=== PATIENT | male | born 1975 | race African-American/Black ===

== ENCOUNTER 2018-03-24 23:22 | Outpatient (CLI) | payer MEDICAID | END 2018-03-24 23:23 | disposition critical access hospital (66) | LOC: EMS 23:22 | PROVIDERS: ATTEND Surgery | DX: M79.645 Pain in left finger(s) (principal) | CPT/HCPCS: A0425; A0429; A0999 ==

== ENCOUNTER 2018-03-24 23:39 | Emergency (ER) | payer MEDICAID ==
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
--- NOTE | 2018-03-25 00:53 | XRAY Report ---
Procedure Date: 03/25/2018 Accession Number: [id number] / [id number] Procedure: XR - Hand 3 View LT CPT Code: FULL RESULT: EXAM: LEFT HAND RADIOGRAPHY EXAM DATE: 03/25/2018 12:19 AM. CLINICAL HISTORY: Pain after injury to 5th finger left hand. COMPARISON: None. TECHNIQUE: 3 views. FINDINGS: Bones: No acute fracture seen. Joints: No dislocation. Joints are fairly well preserved. Soft Tissues: Mild soft tissue swelling. IMPRESSION: 1. No acute osseous abnormality seen. RADIA
[2018-03-25 02:06] VITALS: BP 162/97
== END 2018-03-25 02:12 | disposition home or self-care (01) ==
LOC: EDUNIT# → ED 23:39
DX: S69.92XA Unspecified injury of left wrist, hand and finger(s), initial encounter (principal); W23.0XXA Caught, crushed, jammed, or pinched between moving objects, initial encounter; Y92.410 Unspecified street and highway as the place of occurrence of the external cause; F17.200 Nicotine dependence, unspecified, uncomplicated
CPT/HCPCS: 99283

== ENCOUNTER 2018-03-26 06:57 | Emergency (ER) | payer MEDICAID ==
[2018-03-26 07:04] VITALS: BP 148/106
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
== END 2018-03-26 08:09 | disposition home or self-care (01) ==
LOC: ED 06:57
DX: S60.222A Contusion of left hand, initial encounter (principal); W19.XXXA Unspecified fall, initial encounter; Y92.410 Unspecified street and highway as the place of occurrence of the external cause; F17.200 Nicotine dependence, unspecified, uncomplicated
CPT/HCPCS: 29125; 99282; 99283

== ENCOUNTER 2019-05-17 17:02 | Emergency (ER) | payer MEDICAID ==
[2019-05-17 17:25] LABS: BASOPHILS % (AUTO) 0.3 %; EOSINOPHILS % (AUTO) 0.1 %; HGB - HEMOGLOBIN 13.9 g/dL (14.0-18.0); LYMPHOCYTES % (AUTO) 7.3 %; MEAN CORPUSCULAR HEMOGLOBIN 29.2 pg (27.0-31.0); MEAN CORPUSCULAR HGB CONC 31.7 g/dL (32.0-36.0); MONOCYTES # (AUTO) 0.3 10^3/uL (0.0-1.0); MONOCYTES % (AUTO) 2.2 %; NEUTROPHILS # (AUTO) 12.9 10^3/uL (1.5-6.6); NEUTROPHILS % (AUTO) 89.5 %; PLT - PLATELET COUNT 192 10^3/uL (130-450); RED BLOOD COUNT 4.76 10^6/uL (4.70-6.10); RED CELL DISTRIBUTION WIDTH 13.5 % (12.0-15.0); WHITE BLOOD COUNT 14.3 x10^3/uL (4.8-10.8)
[2019-05-17 17:37] LABS: ALBUMIN 4.9 g/dL (3.2-5.5); ALBUMIN/GLOBULIN RATIO 1.3 (1.0-2.2); BILIRUBIN,TOTAL 1.5 mg/dL (0.2-1.0); CALCIUM 9.5 mg/dL (8.5-10.3); CREATININE 0.9 mg/dL (0.6-1.2); TOTAL PROTEIN 8.8 g/dL (6.7-8.2)
[2019-05-17] MEDS ORDERED: ONDANSETRON 4 MG/2 ML VIAL IVP STA (18:47)
[2019-05-17] MEDS ORDERED: SODIUM CHLORIDE 0.9% 1,000 ML IV ONE (18:47)
[2019-05-17] MEDS ORDERED: KETOROLAC 30 MG/ML VIAL IVP STA (18:47)
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
[2019-05-17] MEDS ORDERED: IOVERSOL 320 100 ML VIAL IVP ONE ×2 (19:06→19:26)
[2019-05-17 19:38] VITALS: BP 141/86
--- NOTE | 2019-05-17 19:59 | CT Report ---
Reason: IV only, R abd pain Procedure Date: 05/17/2019 Accession Number: [id number] / [id number] Procedure: CT - Abdomen/Pelvis W CPT Code: FULL RESULT: EXAM: CT ABDOMEN AND PELVIS EXAM DATE: 05/17/2019 07:25 PM. CLINICAL HISTORY: IV only, R abd pain. COMPARISONS: None. TECHNIQUE: Routine helical CT imaging was performed through the abdomen and pelvis. IV contrast: OPTI 320 100ML. Enteric contrast: No. Reconstructions: Coronal and sagittal. In accordance with CT protocol optimization, one or more of the following dose reduction techniques were utilized for this exam: automated exposure control, adjustment of mA and/or KV based on patient size, or use of iterative reconstructive technique. FINDINGS: Lung Bases: Unremarkable. Liver: Normal. No masses. Gallbladder/Bile Ducts: Unremarkable. Spleen: Normal. Pancreas: Pancreatic glandular atrophy. Adrenal Glands: Normal. Kidneys: Normal. No masses or hydronephrosis. Peritoneal Cavity/Bowel: Normal. No free fluid, free air or adenopathy. No masses or acute inflammatory process. The appendix is well visualized and normal. Pelvic Organs: Normal. The bladder and visualized pelvic organs are within normal limits. Vasculature: No aneurysms or other significant abnormality. Bones: No significant abnormality. Other: None. IMPRESSION: No acute abdominal pathology. RADIA
[2019-05-17] MEDS ORDERED: ONDANSETRON ODT 4 MG Prepack 2 TL STA (20:04)
[2019-05-17] MEDS ORDERED: LOPERAMIDE 2 MG CAPSULE PO STA (20:04)
== END 2019-05-17 20:11 | disposition home or self-care (01) ==
LOC: ED 17:02
DX: K52.9 Noninfective gastroenteritis and colitis, unspecified (principal); F17.200 Nicotine dependence, unspecified, uncomplicated
CPT/HCPCS: 36415; 74177; 80053; 83690; 85025; 96361; 96374; 99283; A9270; Q9967

== ENCOUNTER 2019-09-11 09:23 | Emergency (ER) | payer MEDICAID ==
[2019-09-11] MEDS ORDERED: SODIUM CHLORIDE 0.9% 1,000 ML IV ONE (09:53)
[2019-09-11] MEDS ORDERED: diltiaZEM INJ 5 MG/ML VIAL IVP STA (09:53)
--- NOTE | 2019-09-11 09:56 | ED Physician Documentation ---
History of Present Illness - Stated complaint Stated Complaint: LIGHT HEADED/SOA - Chief complaint Chief Complaint: Cardiac - History obtained from History obtained from: Patient - History of Present Illness Timing: Today - Additonal information Additional information: This is a 44-year-old man who presents with his significant other complaints that he started to feel little bit lightheaded and woozy when he got up to go to the bathroom around midnight last night. He did not pass out. He feels kind of off balance and a spinning sensation. He says he has had this happen previously every "once in a while which she said is maybe twice in a 6-month. But his he is never gone in and been evaluated for it and it always just resolves. He felt like his heart was beating very irregular but he did not check his pulse. He did not have chest pain. He has had some shortness of breath and some minor cough. He felt a little nauseous but no vomiting. He has not recently been ill. Denies any history of thyroid disorder or diabetes. He is not on any prescription medications. 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 Denies history of heart disease and no family history of A. fib or heart disease that he is aware of. He reports about weekly use of alcohol. He does smoke marijuana. Denies other drugs. Review of Systems Constitutional: denies: Fever Eyes: denies: Decreased vision Ears: denies: Ear pain Nose: denies: Rhinorrhea / runny nose, Congestion Throat: denies: Sore throat Cardiac: reports: Palpitations. denies: Chest pain / pressure, Pedal edema Respiratory: reports: Dyspnea, Cough GI: reports: Nausea. denies: Vomiting : denies: Dysuria Skin: denies: Rash Neurologic: denies: Numbness, Syncope Endocrine: reports: Other (No history of thyroid disorder or diabetes.) PD PAST MEDICAL HISTORY - Past Medical History Cardiovascular: None Respiratory: None - Past Surgical History Past Surgical History: No - Present Medications Home Medications: Ambulatory Orders Medication Instructions Recorded Confirmed Loperamide [Imodium] 2 mg PO QID PRN #10 capsule 05/17/19 Ondansetron Odt [Zofran] 4 mg TL Q6H PRN #10 tablet 05/17/19 Doxycycline Monohydrate 100 mg PO BID #14 tablet 06/14/19 Mupirocin 1 applic TP TID #15 g 06/14/19 Diltiazem HCl [Cardizem LA] 60 mg PO DAILY #30 tab.er.24h 09/11/19 - Allergies Allergies/Adverse Reactions: Allergies Allergy/AdvReac Type Severity Reaction Status Date / Time No Known Drug Allergies Allergy Verified 06/14/19 17:57 - Social History Does the pt smoke?: Yes Smoking Status: Current every day smoker Does the pt drink ETOH?: Yes Does the pt have substance abuse?: No - Immunizations Immunizations are current?: Yes - POLST Patient has POLST: No PD ED PE NORMAL - Vitals Vital signs reviewed: Yes - General General: Alert and oriented X 3, No acute distress, Well developed/nourished, Other (Thin 44-year-old man who is in no distress.) - HEENT HEENT: Atraumatic, PERRL, EOMI, Moist mucous membranes, Pharynx benign - Neck Neck: Supple, no meningeal sign, No adenopathy - Cardiac Cardiac: No murmur, Strong equal pulses, Other (Irregular rhythm, rate in the low 100s.) - Respiratory Respiratory: No respiratory distress, Clear bilaterally - Abdomen Abdomen: Normal bowel sounds, Soft, No organomegaly - Derm Derm: Normal color, Warm and dry, No rash - Extremities Extremities: No edema - Neuro Neuro: Alert and oriented X 3, supervisor yard 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, No motor deficit, No sensory deficit, Normal speech - Psych Psych: Normal mood, Normal affect Results - Vitals Vitals: Vital Signs - 24 hr 09/11/19 09/11/19 09/11/19 09:29 09:53 10:05 Temperature 36.1 C L Heart Rate 102 H 98 95 Respiratory 18 18 18 Rate Blood Pressure 108/77 116/84 H 113/82 H O2 Saturation 99 98 96 09/11/19 09/11/19 09/11/19 10:10 10:30 10:38 Temperature Heart Rate 75 86 79 Respiratory 18 18 12 Rate Blood Pressure 106/85 H 121/83 H 118/81 H O2 Saturation 99 100 100 09/11/19 09/11/19 09/11/19 10:45 11:00 12:21 Temperature Heart Rate 83 102 H 99 Respiratory 18 18 22 Rate Blood Pressure 115/72 115/76 121/86 H O2 Saturation 97 99 99 09/11/19 09/11/19 09/11/19 12:58 13:06 13:13 Temperature Heart Rate 93 71 67 Respiratory 16 18 18 Rate Blood Pressure 158/104 H 122/77 116/81 H O2 Saturation 100 100 100 Oxygen O2 Source Room air - EKG (time done) 0937 Rate: Rate (enter#) (106), Tachy Rhythm: Atrial fibrillation Intervals: No: Wide QRS Ischemia: Non specific changes Compare to prior EKG: Old EKG unavailable 1309 Rate: Rate (enter#) (64) Rhythm: NSR Intervals: Normal [place]. No: Wide QRS Ischemia: Non specific changes Compare to prior EKG: Changed from prior EKG (has converted from afib to NSR) - Labs Labs: Laboratory Tests 09/11/19 09/11/19 09/11/19 09:45 09:45 09:45 WBC 6.1 RBC 4.53 L Hgb 13.6 L Hct 41.9 L MCV 92.5 MCH 30.0 MCHC 32.5 RDW 13.2 Plt Count 181 MPV 12.1 H Neut # (Auto) 4.0 Lymph # (Auto) 1.5 [place] # (Auto) 0.5 Eos # (Auto) 0.1 Baso # (Auto) 0.0 Absolute Nucleated RBC 0.00 Nucleated RBC % 0.0 Sodium 141 Potassium 4.1 Chloride 104 Carbon Dioxide 28 Anion Gap 9.0 BUN 13 Creatinine 0.9 Estimated GFR (MDRD) 111 Glucose 161 H Calcium 8.9 Magnesium 2.2 Total Bilirubin 0.7 AST 25 ALT 23 Alkaline Phosphatase 58 Troponin I High Sens 7.5 Total Protein 7.9 Albumin 4.4 Globulin 3.5 Albumin/Globulin Ratio 1.3 Lipase 22 TSH Urine Color Urine Clarity Urine pH Ur Specific [place] Urine Protein Urine Glucose (UA) Urine Ketones Urine Occult Blood Urine Nitrite Urine Bilirubin Urine Urobilinogen Ur Leukocyte Esterase Ur Microscopic Review Urine Culture Comments Urine Opiates Screen Ur Oxycodone Screen Urine Methadone Screen Ur Propoxyphene Screen Ur Barbiturates Screen Ur Tricyclics Screen Ur Phencyclidine Scrn Ur Amphetamine Screen U Methamphetamines Scrn U Benzodiazepines Scrn Urine Cocaine Screen U Cannabinoids Screen 09/11/19 09/11/19 09:45 10:40 WBC RBC Hgb Hct MCV MCH MCHC RDW Plt Count MPV Neut # (Auto) Lymph # (Auto) [place] # (Auto) Eos # (Auto) Baso # (Auto) Absolute Nucleated RBC Nucleated RBC % Sodium Potassium Chloride Carbon Dioxide Anion Gap BUN Creatinine Estimated GFR (MDRD) Glucose Calcium Magnesium Total Bilirubin AST ALT Alkaline Phosphatase Troponin I High Sens Total Protein Albumin Globulin Albumin/Globulin Ratio Lipase TSH 0.69 Urine Color YELLOW Urine Clarity CLEAR Urine pH 6.5 Ur Specific [place] 1.015 Urine Protein NEGATIVE Urine Glucose (UA) NEGATIVE Urine Ketones NEGATIVE Urine Occult Blood NEGATIVE Urine Nitrite NEGATIVE Urine Bilirubin NEGATIVE Urine Urobilinogen 0.2 (NORMAL) Ur Leukocyte Esterase NEGATIVE Ur Microscopic Review NOT INDICATED Urine Culture Comments NOT INDICATED Urine Opiates Screen NEGATIVE Ur Oxycodone Screen NEGATIVE Urine Methadone Screen NEGATIVE Ur Propoxyphene Screen NEGATIVE Ur Barbiturates Screen NEGATIVE Ur Tricyclics Screen NEGATIVE Ur Phencyclidine Scrn NEGATIVE Ur Amphetamine Screen NEGATIVE U Methamphetamines Scrn NEGATIVE U Benzodiazepines Scrn NEGATIVE Urine Cocaine Screen NEGATIVE U Cannabinoids Screen POSITIVE H - Rads (name of study) CXR Radiology: EMP read contemporaneously Procedures - Procedural sedation Sedation prep: Informed consent, Last meal (6 hours), AHA 1 - healthy, IV O2 monitor, ET CO2 monitor Sedation medications: propofol (total 90mg) Patient status during sedation: Unresponsive, Vitals remained stable, Maintained airway, Recovered uneventfully. No: Hypoxia, Needed resp assistance Sedation recovery: Back to baseline Time in sedation (Minutes): 10 (see nursing notes) - Cardioversion Attempt 1 Indication: Tachyarrhythmia Risks, benefits, alternatives explained to: Pt Prep: IV, O2, night monitor, Pulse ox, Airway equip Meds: Propofol CS via: Pads Sync: Biphasic (120) Post cardioversion rhythm: NSR Performed by: ED MD HAWKINS MEDICAL DECISION MAKING - ED course Complexity details: reviewed results, re-evaluated patient, d/w patient, d/w family ED course: 1230: Labs are normal. The patient was given 10 mg of Cardizem IV and loaded with a gram of procainamide and did not convert. He remained in A. fib with rates in the upper 90s sometimes up into the 120s whenever he was up and went to the bathroom. We discussed electrical cardioversion and he is agreeable with that plan. We discussed the risk and benefits of conscious sedation. His is familiar with this because she had a brother who underwent electrical cardioversion for A. fib. He is consented to the procedure. He is given half a milligram of Dilaudid and 4 of Zofran and plan for conscious sedation with propofol followed by cardioversion. 1315: There was successful electrocardioversion to return of sinus rhythm rate of 64. I did discuss with Dr. Ulloa who is on for [facility] cardiology. He recommended that we start the patient at least temporarily on Cardizem ER 60 mg daily. No current need for anticoagulation. They are happy to follow him up in the office. Recommended outpatient echo and I will refer the patient back to his primary care provider for that or they can do it through the cardiology office if he can get into them sooner. He is asked to return for any complications or concerns. Departure - Departure Disposition: 01 Home, Self Care Clinical Impression: Atrial fibrillation Qualifiers: Atrial fibrillation type: unspecified Qualified Code(s): I48.91 - Unspecified atrial fibrillation Condition: Good Instructions: ED Paroxysmal Atrial Flutter Follow-Up: CATARINO HERNANDEZ PA [Primary Care Provider] - JEERMÍAS ULLOA MD [Physician No Access] - [facility] - Card [Provider Group] Prescriptions: Diltiazem HCl [Cardizem LA] 60 mg PO DAILY #30 tab.er.24h Comments: The food and drug inspector is recommended that you take a rate controlling medication Cardizem at 60 mg daily until they can follow you up as an outpatient. They also recommended echocardiogram which she should contact your primary care provider about ordering. You should contact the food and drug inspector office [facility] cardiology clinics this coming week to arrange for a follow-up appointment. Return to the emergency department if you have recurrent symptoms or other problems arise.
[2019-09-11 10:02] LABS: BASOPHILS % (AUTO) 0.5 %; EOSINOPHILS # (AUTO) 0.1 10^3/uL (0.0-0.7); EOSINOPHILS % (AUTO) 1.5 %; HGB - HEMOGLOBIN 13.6 g/dL (14.0-18.0); LYMPHOCYTES # (AUTO) 1.5 10^3/uL (1.5-3.5); LYMPHOCYTES % (AUTO) 24.4 %; MEAN CORPUSCULAR HGB CONC 32.5 g/dL (32.0-36.0); MEAN CORPUSCULAR VOLUME 92.5 fL (80.0-94.0); MEAN PLATELET VOLUME 12.1 fL (7.4-11.4); MONOCYTES # (AUTO) 0.5 10^3/uL (0.0-1.0); MONOCYTES % (AUTO) 8.1 %; NEUTROPHILS % (AUTO) 65.2 %; PLT - PLATELET COUNT 181 10^3/uL (130-450); RED BLOOD COUNT 4.53 10^6/uL (4.70-6.10); RED CELL DISTRIBUTION WIDTH 13.2 % (12.0-15.0); WHITE BLOOD COUNT 6.1 x10^3/uL (4.8-10.8)
[2019-09-11 10:12] LABS: ALBUMIN 4.4 g/dL (3.2-5.5); ALBUMIN/GLOBULIN RATIO 1.3 (1.0-2.2); BILIRUBIN,TOTAL 0.7 mg/dL (0.2-1.0); CALCIUM 8.9 mg/dL (8.5-10.3); CREATININE 0.9 mg/dL (0.6-1.2); MAGNESIUM 2.2 mg/dL (1.7-2.8); TOTAL PROTEIN 7.9 g/dL (6.7-8.2)
[2019-09-11] MEDS ORDERED: PROCAINAMIDE 1,000 MG/10 ML SYRINGE IV STA (10:21)
[2019-09-11 10:42] LABS: MUDS CUTOFF CONCENTRATIONS CUTOFF CONC BELOW:
[2019-09-11 10:47] LABS: BILIRUBIN,URINE NEGATIVE (NEGATIVE); GLUCOSE, URINE (UA) NEGATIVE (NEGATIVE); KETONES,URINE (UA) NEGATIVE (NEGATIVE); LEUKOCYTE ESTERASE, URINE NEGATIVE (NEGATIVE); NITRITE,URINE NEGATIVE (NEGATIVE); OCCULT BLOOD,URINE NEGATIVE (NEGATIVE); PH,URINE 6.5 PH (5.0-7.5); PROTEIN,URINE NEGATIVE (NEGATIVE); UROBILINOGEN,URINE 0.2 (NORMAL) E.U./dL (NORMAL)
--- NOTE | 2019-09-11 10:50 | XRAY Report ---
Reason: chest pain Procedure Date: 09/11/2019 Accession Number: [id number] / [id number] Procedure: XR - Chest 1 View X-Ray CPT Code: 61248 Final Report FULL RESULT: EXAM: CHEST RADIOGRAPHY EXAM DATE: 09/11/2019 10:10 AM. CLINICAL HISTORY: Chest pain, lightheadedness. COMPARISON: None. TECHNIQUE: 1 view. FINDINGS: Lungs/Pleura: No focal opacities evident. No pleural effusion. No pneumothorax. Mediastinum: Within exam limitations, the cardiomediastinal contour is normal. Other: None. IMPRESSION: Normal single view chest. RADIA
[2019-09-11 10:51] LABS: CLARITY,URINE CLEAR (CLEAR)
[2019-09-11 11:10] LABS: AMPHETAMINE SCREEN,URINE NEGATIVE (NEGATIVE); BENZODIAZEPINES SCREEN, URINE NEGATIVE (NEGATIVE); COCAINE SCREEN URINE NEGATIVE (NEGATIVE); METHADONE SCREEN, URINE NEGATIVE (NEGATIVE); METHAMPHETAMINES SCREEN, URINE NEGATIVE (NEGATIVE); OPIATE SCREEN, URINE NEGATIVE (NEGATIVE); OXYCODONE SCREEN, URINE NEGATIVE (NEGATIVE); PROPOXYPHENE SCREEN, URINE NEGATIVE (NEGATIVE); TRICYCLIC ANTIDEPRESSANT,URINE NEGATIVE (NEGATIVE)
[2019-09-11] MEDS ORDERED: HYDROmorphone 1 MG/ML CARPUJECT IVP STA (12:39)
[2019-09-11] MEDS ORDERED: PROPOFOL 200 MG/20 ML VIAL IVP STA (12:39)
[2019-09-11] MEDS ORDERED: ONDANSETRON 4 MG/2 ML VIAL IVP STA (12:39)
[2019-09-11 13:37] VITALS: BP 109/78
== END 2019-09-11 13:37 | disposition home or self-care (01) ==
LOC: ED 09:23
DX: I48.91 Unspecified atrial fibrillation (principal); F17.200 Nicotine dependence, unspecified, uncomplicated
CPT/HCPCS: 36415; 71045; 80053; 80306; 81003; 83690; 83735; 84443; 84484; 85025; 92960; 96361; 96374; 96375; 99152; 99285; J1170; J2690; 81001; 87086; 93005

== ENCOUNTER 2019-09-26 15:57 | Emergency (ER) | payer OTHER, MEDICAID ==
[2019-09-26 16:14] VITALS: BP 126/84
--- NOTE | 2019-09-26 16:36 | XRAY Report ---
Reason: Trauma,bruising and pain Procedure Date: 09/26/2019 Accession Number: [id number] / [id number] Procedure: XR - Foot 3 View RT CPT Code: Final Report FULL RESULT: EXAM: RIGHT FOOT RADIOGRAPHY EXAM DATE: 09/26/2019 04:18 PM. CLINICAL HISTORY: Trauma, bruising and pain. COMPARISON: None. TECHNIQUE: 3 views. FINDINGS: Bones: No acute fracture. No suspicious osseous lesion. Joints: No significant joint space narrowing. No dislocation. Large calcification at the dorsal aspect of the talonavicular joint may represent interarticular body or heterotopic ossification. Other: None. IMPRESSION: No acute osseous abnormality. RADIA
--- NOTE | 2019-09-26 18:51 | ED Physician Documentation ---
History of Present Illness - Stated complaint Stated Complaint: RIGHT FT PX - Chief complaint Chief Complaint: Trauma Ext - History obtained from History obtained from: Patient - History of Present Illness Pain level now: 4 Improved by: rest Worsened by: ambulation - Additonal information Additional information: 44 YEAR OLD MALE PRESENTS TO THE EMERGENCY DEPARTMENT BECAUSE OF RIGHT FOOT PAIN. HE REPORTED THAT HE SUFFERED AN INJURY WHILE AT WORK LAST THURSDAY (5 DAYS AGO) WHEN A BOX ABOUT 60 LBS WAS DROPPED ON TOP OF HIS RIGHT FOOT. HE WORKS AT [employer]. PATIENT REPORTED THAT HE HAD SWELLING TO THE TOP OF THE FOOT AND THE SWELLING HAS SINCE GONE AWAY. HE REPORTED OF NUMBNESS TO THE TOP OF HIS FOOT. HE DENIES PREVIOUS INJURY TO HIS RIGHT FOOT. HE HAS BEEN WORKING DESPITE HIS INJURY. HE DENIES FEVER OR CHILLS. Review of Systems Constitutional: denies: Fever, Chills Eyes: denies: Discharge, Irritation Ears: denies: Ear pain Nose: denies: Rhinorrhea / runny nose Cardiac: denies: Chest pain / pressure Respiratory: denies: Dyspnea, Cough GI: denies: Abdominal Pain Skin: denies: Rash, Lesions Musculoskeletal: reports: Other (RIGHT FOOT PAIN) PD PAST MEDICAL HISTORY - Past Medical History Past Medical History: Yes Cardiovascular: Atrial fibrillation Respiratory: None - Past Surgical History Past Surgical History: Yes - Present Medications Home Medications: Ambulatory Orders Medication Instructions Recorded Confirmed Diltiazem HCl [Cardizem LA] 60 mg PO DAILY #30 tab.er.24h 09/11/19 - Allergies Allergies/Adverse Reactions: Allergies Allergy/AdvReac Type Severity Reaction Status Date / Time No Known Drug Allergies Allergy Verified 09/26/19 18:25 - Social History Does the pt smoke?: Yes Smoking Status: Current every day smoker Does the pt drink ETOH?: Yes Does the pt have substance abuse?: No - Immunizations Immunizations are current?: Yes - POLST Patient has POLST: No PD ED PE NORMAL - Vitals Vital signs reviewed: Yes - General General: Alert and oriented X 3 - HEENT HEENT: Atraumatic, EOMI - Neck Neck: Supple, no meningeal sign - Cardiac Cardiac: RRR - Respiratory Respiratory: No respiratory distress - Extremities Extremities: No deformity, Other (TENDER TO PALPATION TO TOP OF RIGHT FOOT. NO SWELLING NOTED. NO CREPITUS OR DEFORMITY. RIGHT DP AND PT ARE 2+) - Neuro Neuro: Alert and oriented X 3, epic ambulatory analyst 2-12 intact Eye Opening: Spontaneous Motor: Obeys Commands Verbal: Oriented GCS Score: 15 Results - Vitals Vitals: Vital Signs - 24 hr 09/26/19 16:07 Temperature 37 C Heart Rate 67 Respiratory 18 Rate Blood Pressure 126/84 H O2 Saturation 100 Oxygen O2 Source Room air PD MEDICAL DECISION MAKING - ED course Complexity details: d/w patient ED course: 44 YEAR OLD MALE PRESENTS TO THE EMERGENCY DEPARTMENT BECAUSE OF RIGHT FOOT XRAY SHOWS NO ACUTE OSSEOUS ABNORMALITY PER RADIOLOGIST. BASED ON MECHANISM, XRAY IMAGES, I DO NOT SUSPECT LISFRANC FRACTURE. I RECOMMEND TO CONTINUE WITH SUPPORTIVE CARE AND OUTPATIENT FOLLOW UP WITH HIS PCP IN 3-5 DAYS FOR RECHECK. PATIENT EXPRESSED VERBAL UNDERSTANDING. HE WAS DISCHARGED IN STABLE CONDITION. I HAVE CONSIDERED FRACTURE, DISLOCATION, CELLULITES, JOINT INFECTION AMONG OTHER CAUSES IN THE DIFFERENTIAL DIAGNOSIS. Departure - Departure Disposition: 01 Home, Self Care Clinical Impression: Contusion of foot, right Condition: Stable Instructions: ED Contusion Foot Follow-Up: CATARINO HERNANDEZ PA [Primary Care Provider] - 09/30/19 Comments: PLEASE FOLLOW UP WITH A REGULAR DOCTOR IN 4 DAYS. PLEASE USE IBUPROFEN OR TYLENOL NEEDED FOR PAIN AND DISCOMFORT. Discharge Date/Time: 09/26/19 18:55
== END 2019-09-26 18:55 | disposition home or self-care (01) ==
LOC: ED 15:57
DX: S90.31XA Contusion of right foot, initial encounter (principal); W20.8XXA Other cause of strike by thrown, projected or falling object, initial encounter; Y93.89 Activity, other specified; Y92.511 Restaurant or cafe as the place of occurrence of the external cause; Y99.0 Civilian activity done for income or pay; F17.200 Nicotine dependence, unspecified, uncomplicated
CPT/HCPCS: 99283; 99284

== ENCOUNTER 2019-10-21 22:11 | Emergency (ER) | payer MEDICAID ==
--- NOTE | 2019-10-21 22:12 | ED Physician Documentation ---
History of Present Illness - Stated complaint Stated Complaint: SKIPPING HEART/SOA - History obtained from History obtained from: Patient (The patient is a 44-year-old male with a known history of atrial fibrillation on 60 mg of extended release Cardizem daily smoke marijuana earlier today and then he had an episode tonight where he felt some nausea, Generalized weakness and lightheadedness and palpitations and states he is concerned that he could be in a fib again. He denies any history of GA or stroke or PE or DVT he denies any syncopal episodes he denies any chest pain currently.) Review of Systems Constitutional: reports: Reviewed and negative Eyes: reports: Reviewed and negative Ears: reports: Reviewed and negative Nose: reports: Reviewed and negative Throat: reports: Reviewed and negative Cardiac: reports: Palpitations Respiratory: reports: Reviewed and negative GI: reports: Nausea : reports: Reviewed and negative Skin: reports: Reviewed and negative Musculoskeletal: reports: Reviewed and negative Neurologic: reports: Reviewed and negative Psychiatric: reports: Reviewed and negative Endocrine: reports: Reviewed and negative Immunocompromised: reports: Reviewed and negative PD PAST MEDICAL HISTORY - Past Medical History Cardiovascular: Atrial fibrillation Respiratory: None - Past Surgical History Past Surgical History: Yes - Present Medications Home Medications: Ambulatory Orders Medication Instructions Recorded Confirmed Diltiazem HCl [Cardizem LA] 60 mg PO DAILY #30 tab.er.24h 09/11/19 - Allergies Allergies/Adverse Reactions: Allergies Allergy/AdvReac Type Severity Reaction Status Date / Time No Known Drug Allergies Allergy Verified 09/26/19 18:25 - Social History Does the pt smoke?: Yes Smoking Status: Current every day smoker Does the pt drink ETOH?: Yes Does the pt have substance abuse?: No - Immunizations Immunizations are current?: Yes - POLST Patient has POLST: No PD ED PE NORMAL - Vitals Vital signs reviewed: Yes - General General: Alert and oriented X 3, No acute distress, Well developed/nourished - HEENT HEENT: Atraumatic, PERRL, Moist mucous membranes, Pharynx benign - Neck Neck: Supple, no meningeal sign, No JVD - Cardiac Cardiac: RRR, No murmur, Strong equal pulses - Respiratory Respiratory: No respiratory distress, Clear bilaterally - Abdomen Abdomen: Normal bowel sounds, Soft, Non tender, Non distended, No organomegaly - Back Back: No CVA TTP, No spinal TTP - Derm Derm: Normal color, Warm and dry, No rash - Extremities Extremities: No deformity, No tenderness to palpate, Normal ROM s pain, No edema, No calf tenderness / cord - Neuro Neuro: Alert and oriented X 3 - Psych Psych: Normal mood, Normal affect Results - Vitals Vitals: Vital Signs - 24 hr 10/21/19 22:18 Temperature 36.8 C Heart Rate 66 Respiratory 17 Rate Blood Pressure 145/81 H O2 Saturation 100 Oxygen O2 Source Room air - EKG (time done) 22:17 Rate: Other (no STEMI) - Labs Labs: Laboratory Tests 10/21/19 22:30 Troponin I High Sens 8.0 PD MEDICAL DECISION MAKING - ED course Complexity details: considered differential (a fib. patient has a neg ekg, neg trop, no chest pain, neg cxr. patient asymptomatic currently.) Departure - Departure Disposition: 01 Home, Self Care Clinical Impression: Palpitations, History of atrial fibrillation Condition: Stable Instructions: Atrial Fibrillation Dc Follow-Up: your, doctor [Other] - Within 3 Days
--- NOTE | 2019-10-21 23:17 | XRAY Report ---
Reason: sob Procedure Date: 10/21/2019 Accession Number: [id number] / [id number] Procedure: XR - Chest 1 View X-Ray CPT Code: 60078 Final Report FULL RESULT: EXAM: CHEST RADIOGRAPHY EXAM DATE: 10/21/2019 10:49 PM. CLINICAL HISTORY: Shortness of breath. Lightheaded. COMPARISON: CHEST 1 VIEW 09/11/2019 9:54 AM. TECHNIQUE: 1 view. FINDINGS: Lungs/Pleura: No focal opacities evident. No pleural effusion. No pneumothorax. Mediastinum: Within exam limitations, the cardiomediastinal contour is normal. Other: None. IMPRESSION: Normal single view chest. RADIA
[2019-10-21 23:44] VITALS: BP 138/89
== END 2019-10-21 23:43 | disposition home or self-care (01) ==
LOC: ED 22:11
DX: R00.2 Palpitations (principal); F17.210 Nicotine dependence, cigarettes, uncomplicated; Z86.79 Personal history of other diseases of the circulatory system; Z79.01 Long term (current) use of anticoagulants
CPT/HCPCS: 36415; 71045; 84484; 93005; 99284; 99285

== ENCOUNTER 2019-12-17 18:31 | Outpatient (CLI) | payer MEDICAID | END 2019-12-17 18:32 | disposition critical access hospital (66) | LOC: EMS 18:31 | PROVIDERS: ATTEND Surgery | DX: R00.0 Tachycardia, unspecified (principal); R42 Dizziness and giddiness; R11.0 Nausea; R10.9 Unspecified abdominal pain; R06.89 Other abnormalities of breathing; R51 Headache | CPT/HCPCS: A0425; A0429; A0999 ==

== ENCOUNTER 2019-12-17 18:49 | Emergency (ER) | payer MEDICAID ==
[2019-12-17 19:02] VITALS: BP 156/99
[2019-12-17 19:16] LABS: BASOPHILS % (AUTO) 0.4 %; EOSINOPHILS # (AUTO) 0.1 10^3/uL (0.0-0.7); EOSINOPHILS % (AUTO) 0.5 %; HGB - HEMOGLOBIN 12.8 g/dL (14.0-18.0); LYMPHOCYTES # (AUTO) 1.9 10^3/uL (1.5-3.5); LYMPHOCYTES % (AUTO) 18.2 %; MEAN CORPUSCULAR HEMOGLOBIN 28.3 pg (27.0-31.0); MEAN CORPUSCULAR HGB CONC 31.2 g/dL (32.0-36.0); MEAN CORPUSCULAR VOLUME 90.7 fL (80.0-94.0); MEAN PLATELET VOLUME 11.9 fL (7.4-11.4); MONOCYTES # (AUTO) 0.6 10^3/uL (0.0-1.0); NEUTROPHILS # (AUTO) 7.8 10^3/uL (1.5-6.6); NEUTROPHILS % (AUTO) 74.5 %; PLT - PLATELET COUNT 207 10^3/uL (130-450); RED BLOOD COUNT 4.52 10^6/uL (4.70-6.10); RED CELL DISTRIBUTION WIDTH 13.5 % (12.0-15.0); WHITE BLOOD COUNT 10.5 x10^3/uL (4.8-10.8)
[2019-12-17 19:29] LABS: ALBUMIN 4.5 g/dL (3.2-5.5); ALBUMIN/GLOBULIN RATIO 1.3 (1.0-2.2); BILIRUBIN,TOTAL 1.1 mg/dL (0.2-1.0); TOTAL PROTEIN 8.1 g/dL (6.7-8.2)
--- NOTE | 2019-12-17 19:45 | XRAY Report ---
Reason: Chest Pain Procedure Date: 12/17/2019 Accession Number: [id number] / [id number] Procedure: XR - Chest 1 View X-Ray CPT Code: 38597 Final Report FULL RESULT: EXAM: CHEST RADIOGRAPHY EXAM DATE: 12/17/2019 07:15 PM. CLINICAL HISTORY: Chest Pain. COMPARISON: CHEST 1 VIEW 10/21/2019 10:23 PM. TECHNIQUE: 1 view. FINDINGS: Lungs/Pleura: No focal opacities evident. No pleural effusion. No pneumothorax. Mediastinum: Within exam limitations, the cardiomediastinal contour is normal. Other: No bony abnormality identified. IMPRESSION: Normal single view chest. RADIA
--- NOTE | 2019-12-17 19:49 | ED Physician Documentation ---
History of Present Illness - Stated complaint Stated Complaint: TACHYCARDIA MOMENT - Chief complaint Chief Complaint: Cardiac - History obtained from History obtained from: Patient - History of Present Illness Timing: Today Pain level max: 0 Pain level now: 0 - Additonal information Additional information: 44-year-old male with a history of atrial fibrillation was seen here approximately 3 months ago for same. Has not followed up with his doctor. Has not followed up with cardiology. Still has intermittent palpitations. Nothing makes it better or worse. Not on any medications at home. No chest pain. Occasional shortness of breath Review of Systems Ten Systems: 10 systems reviewed and negative Constitutional: denies: Fever, Chills Nose: denies: Rhinorrhea / runny nose, Congestion GI: denies: Vomiting, Diarrhea Skin: denies: Rash Musculoskeletal: denies: Neck pain, Back pain Neurologic: denies: Headache PD PAST MEDICAL HISTORY - Past Medical History Past Medical History: Yes Cardiovascular: Atrial fibrillation Respiratory: None Neuro: None Endocrine/Autoimmune: None GI: None HEENT: None Psych: None Musculoskeletal: None Derm: None - Past Surgical History Past Surgical History: Yes - Present Medications Home Medications: Ambulatory Orders Medication Instructions Recorded Confirmed Diltiazem HCl [Cardizem LA] 60 mg PO DAILY #30 tab.er.24h 09/11/19 diltiaZEM CD [Cardizem Cd] 120 mg PO DAILY #30 capsule 12/17/19 - Allergies Allergies/Adverse Reactions: Allergies Allergy/AdvReac Type Severity Reaction Status Date / Time No Known Drug Allergies Allergy Verified 09/26/19 18:25 - Social History Does the pt smoke?: Yes Smoking Status: Current every day smoker Does the pt drink ETOH?: Yes Does the pt have substance abuse?: No - Immunizations Immunizations are current?: Yes - POLST Patient has POLST: No PD ED PE NORMAL - Vitals Vital signs reviewed: Yes - General General: Alert and oriented X 3, No acute distress - HEENT HEENT: Moist mucous membranes - Neck Neck: Supple, no meningeal sign - Cardiac Cardiac: RRR - Respiratory Respiratory: No respiratory distress, Clear bilaterally - Abdomen Abdomen: Soft, Non tender, Non distended - Derm Derm: Warm and dry - Neuro Neuro: Alert and oriented X 3 - Psych Psych: Normal mood, Normal affect Results - Vitals Vitals: Vital Signs - 24 hr 12/17/19 12/17/19 18:56 19:59 Temperature 37.2 C Heart Rate 80 80 Respiratory 16 18 Rate Blood Pressure 156/99 H O2 Saturation 98 100 Oxygen O2 Source Room air - EKG (time done) 1851 Rate: Rate (enter#) (73) Rhythm: NSR [place]: Normal Intervals: Normal IN QRS: Normal Ischemia: Normal ST segments, Q waves (V2-3) - Labs Labs: Laboratory Tests 12/17/19 12/17/19 12/17/19 18:55 18:55 18:55 WBC 10.5 RBC 4.52 L Hgb 12.8 L Hct 41.0 L MCV 90.7 MCH 28.3 MCHC 31.2 L RDW 13.5 Plt Count 207 MPV 11.9 H Neut # (Auto) 7.8 H Lymph # (Auto) 1.9 [place] # (Auto) 0.6 Eos # (Auto) 0.1 Baso # (Auto) 0.0 Absolute Nucleated RBC 0.00 Nucleated RBC % 0.0 Sodium 139 Potassium 3.7 Chloride 103 Carbon Dioxide 26 Anion Gap 10.0 BUN 14 Creatinine 1.0 Estimated GFR (MDRD) 98 Glucose 101 H Calcium 9.0 Total Bilirubin 1.1 H AST 24 ALT 22 Alkaline Phosphatase 57 Troponin I High Sens 3.6 Total Protein 8.1 Albumin 4.5 Globulin 3.6 Albumin/Globulin Ratio 1.3 Lipase 17 L PD MEDICAL DECISION MAKING - ED course Complexity details: reviewed old records, reviewed results, re-evaluated patient, considered differential, d/w patient ED course: Patient with a history of atrial fibrillation. Currently not on diltiazem. We will place him back on this. No significant lab abnormalities. Normal sinus rhythm in the emergency department. Patient encouraged to follow-up closely with his doctor. Patient counseled regarding signs and symptoms for which I believe and urgent re-evaluation would be necessary. Patient with good understanding of and agreement to plan and is comfortable going home at this time This document was made in part using voice recognition software. While efforts are made to proofread this document, sound alike and grammatical errors may occur. Departure - Departure Disposition: 01 Home, Self Care Clinical Impression: History of atrial fibrillation Condition: Good Instructions: Atrial Fibrillation Dc Follow-Up: Your,doctor in 1 week [Other] Prescriptions: diltiaZEM CD [Cardizem Cd] 120 mg PO DAILY #30 capsule Comments: We will start you on the Cardizem. Follow-up with your doctor within a week for further care. You should have an echocardiogram and you may need a referral to cardiology as well. Return if you worsen Discharge Date/Time: 12/17/19 20:17
== END 2019-12-17 20:17 | disposition home or self-care (01) ==
LOC: EDUNIT# → ED 18:49
DX: I48.91 Unspecified atrial fibrillation (principal); F17.200 Nicotine dependence, unspecified, uncomplicated
CPT/HCPCS: 36415; 71045; 80053; 83690; 84484; 85025; 93005; 99284

== ENCOUNTER 2020-05-09 13:57 | Emergency (ER) | payer MEDICAID ==
[2020-05-09 14:41] LABS: BILIRUBIN,URINE NEGATIVE (NEGATIVE); GLUCOSE, URINE (UA) NEGATIVE (NEGATIVE); KETONES,URINE (UA) NEGATIVE (NEGATIVE); LEUKOCYTE ESTERASE, URINE NEGATIVE (NEGATIVE); NITRITE,URINE NEGATIVE (NEGATIVE); OCCULT BLOOD,URINE NEGATIVE (NEGATIVE); PROTEIN,URINE NEGATIVE (NEGATIVE); UROBILINOGEN,URINE 0.2 (NORMAL) E.U./dL (NORMAL)
[2020-05-09 14:42] LABS: CLARITY,URINE CLEAR (CLEAR)
[2020-05-09] MEDS ORDERED: LIDOCAINE 1% 2 ML VIAL MC ONE (15:29)
[2020-05-09] MEDS ORDERED: cefTRIAXone 250 MG VIAL IM STA (15:29)
--- NOTE | 2020-05-09 15:29 | ED Physician Documentation ---
History of Present Illness - Stated complaint Stated Complaint: MALE , HEARTBURN - Chief complaint Chief Complaint: General - History obtained from History obtained from: Patient - History of Present Illness Timing: How many weeks ago (2) - Additonal information Additional information: 45-year-old male presents to the emergency department today with 2 chief c omplaints. 1 is he has been having some heartburn over the past 2 weeks and has had heartburn previously when he was younger. He is tried to do some Tums with this and has not had much luck with that. He is having symptoms at 3:00 in the morning and he is having symptoms when he lies down to go to bed at night. He denies any heavy alcohol consumption denies any use of ibuprofen he does eat a l ot of hot sauce and he denies recent or eating. His second problem is periodic dysuria without discharge. He does indicate that he has been using condoms and he has been with random individual and he is concerned about the possibility of STD Review of Systems Constitutional: denies: Fever Eyes: denies: Decreased vision Ears: denies: Ear pain Nose: denies: Rhinorrhea / runny nose, Congestion Throat: denies: Sore throat Cardiac: denies: Chest pain / pressure, Palpitations Respiratory: denies: Dyspnea, Cough GI: denies: Abdominal Pain, Nausea, Vomiting, Constipation, Diarrhea : reports: Dysuria. denies: Frequency, Discharge Skin: denies: Rash Musculoskeletal: denies: Neck pain, Back pain, Extremity pain Neurologic: denies: Generalized weakness, Focal weakness, Numbness PD PAST MEDICAL HISTORY - Past Medical History Cardiovascular: Atrial fibrillation Respiratory: None Neuro: None Endocrine/Autoimmune: None GI: None HEENT: None Psych: None Musculoskeletal: None Derm: None - Past Surgical History Past Surgical History: Yes - Present Medications Home Medications: Ambulatory Orders Medication Instructions Recorded Confirmed Diltiazem HCl [Cardizem LA] 60 mg PO DAILY #30 tab.er.24h 09/11/19 diltiaZEM CD [Cardizem Cd] 120 mg PO DAILY #30 capsule 12/17/19 - Allergies Allergies/Adverse Reactions: Allergies Allergy/AdvReac Type Severity Reaction Status Date / Time No Known Drug Allergies Allergy Verified 05/09/20 14:21 - Social History Does the pt smoke?: Yes Smoking Status: Current every day smoker Does the pt drink ETOH?: Yes Does the pt have substance abuse?: No - Immunizations Immunizations are current?: Yes - POLST Patient has POLST: No PD ED PE NORMAL - Vitals Vital signs reviewed: Yes (normal ) - General General: Alert and oriented X 3, No acute distress, Well developed/nourished - HEENT HEENT: Atraumatic, PERRL, EOMI - Neck Neck: Supple, no meningeal sign - Cardiac Cardiac: RRR, No murmur - Respiratory Respiratory: No respiratory distress, Clear bilaterally - Abdomen Abdomen: Soft, Non tender - Back Back: No CVA TTP, No spinal TTP - Derm Derm: Normal color, Warm and dry, No rash - Extremities Extremities: No deformity, No edema, No calf tenderness / cord - Neuro Neuro: Alert and oriented X 3, animal husbandry professor 2-12 intact, No motor deficit, No sensory deficit, Normal speech Eye Opening: Spontaneous Motor: Obeys Commands Verbal: Oriented GCS Score: 15 - Psych Psych: Normal mood, Normal affect Results - Vitals Vitals: Vital Signs - 24 hr 05/09/20 14:17 Temperature 36.8 C Heart Rate 78 Respiratory 16 Rate Blood Pressure 130/71 O2 Saturation 98 Oxygen O2 Source Room air - Labs Labs: Laboratory Tests 05/09/20 14:28 Urine Color YELLOW Urine Clarity CLEAR Urine pH 7.0 Ur Specific [place] 1.020 Urine Protein NEGATIVE Urine Glucose (UA) NEGATIVE Urine Ketones NEGATIVE Urine Occult Blood NEGATIVE Urine Nitrite NEGATIVE Urine Bilirubin NEGATIVE Urine Urobilinogen 0.2 (NORMAL) Ur Leukocyte Esterase NEGATIVE Ur Microscopic Review NOT INDICATED Urine Culture Comments NOT INDICATED PD MEDICAL DECISION MAKING - ED course Complexity details: reviewed results, re-evaluated patient, considered differential, d/w patient ED course: 45-year-old male with reflux symptoms and a dysuria is concerned about STD and his urine specimen is sent for DNA testing for chlamydia and GC and he is treated for STD with 250 mg of Rocephin and 1 g of a azithromycin. Departure - Departure Disposition: 01 Home, Self Care Clinical Impression: Urethritis GERD (gastroesophageal reflux disease) Qualifiers: Esophagitis presence: without esophagitis Qualified Code(s): K21.9 - Gastro- esophageal reflux disease without esophagitis Condition: Stable Instructions: ED GERD, Famotidine, ED Urethritis Infec Vs Inflam Male, ED STD Male Treated Follow-Up: [facility] [Provider Group] Comments: For treatment of your heartburn the recommendation is to take Pepcid AC or Nexium daily for the next 2 weeks. Avoid ibuprofen alcohol aspirin Aleve and hot or spicy foods and avoid overeating.
[2020-05-09] MEDS ORDERED: AZITHROMYCIN 250 MG TABLET PO STA (15:30)
[2020-05-09 16:13] VITALS: BP 147/81
== END 2020-05-09 16:13 | disposition home or self-care (01) ==
LOC: ED 13:57
DX: K21.9 Gastro-esophageal reflux disease without esophagitis (principal); N34.2 Other urethritis; F17.200 Nicotine dependence, unspecified, uncomplicated
CPT/HCPCS: 81003; 87491; 87591; 96372; 99283; 99284; A9270; 81001; 87086; 87661

== ENCOUNTER 2020-08-20 16:05 | Emergency (ER) | payer MEDICAID ==
[2020-08-20 16:11] VITALS: BP 142/80
--- NOTE | 2020-08-20 16:27 | ED Physician Documentation ---
PD HPI WOUND RECHECK - Stated complaint Stated Complaint: BLISTERS ON RIGHT ARM - Chief complaint Chief Complaint: Wound - Histroy obtained from History obtained from: Patient - Additional information Additional information: He has had a few days of spots in the right antecubital fossa that feel hot. No specific injury. No other spots. No systemic symptoms. Review of Systems Constitutional: reports: Reviewed and negative Eyes: reports: Reviewed and negative Ears: reports: Reviewed and negative Nose: reports: Reviewed and negative Throat: reports: Reviewed and negative PD PAST MEDICAL HISTORY - Past Medical History Past Medical History: Yes Cardiovascular: Atrial fibrillation Respiratory: None Neuro: None Endocrine/Autoimmune: None GI: None HEENT: None Psych: None Musculoskeletal: None Derm: None - Past Surgical History Past Surgical History: Yes - Present Medications Home Medications: Ambulatory Orders Medication Instructions Recorded Confirmed Valacyclovir HCl [Valtrex] 1,000 mg PO TID #30 tablet 08/20/20 cephALEXin [Keflex] 500 mg PO Q6H #28 capsule 08/20/20 - Allergies Allergies/Adverse Reactions: Allergies Allergy/AdvReac Type Severity Reaction Status Date / Time No Known Drug Allergies Allergy Verified 08/20/20 16:11 - Social History Does the pt smoke?: Yes Smoking Status: Current every day smoker Does the pt drink ETOH?: Yes Does the pt have substance abuse?: No - Immunizations Immunizations are current?: Yes - POLST Patient has POLST: No PD ED PE NORMAL - Vitals Vital signs reviewed: Yes - General General: Alert and oriented X 3, No acute distress - Extremities Extremities: Other (In the lateral part of the antecubital fossa there are several either small areas of folliculitis without cellulitis or could also be vesicles.) - Neuro Neuro: Alert and oriented X 3, Normal speech Results - Vitals Vitals: Vital Signs - 24 hr 08/20/20 16:08 Temperature 36.7 C Heart Rate 90 Respiratory 18 Rate Blood Pressure 142/80 H O2 Saturation 100 Oxygen O2 Source Room air PD MEDICAL DECISION MAKING - ED course ED course: It is pretty mild at this juncture, could be mild shingles versus folliculitis. He is covered for both but both a VZV PCR and wound culture were sent. Departure - Departure Disposition: 01 Home, Self Care Clinical Impression: Folliculitis Condition: Good Record reviewed to determine appropriate education?: Yes Instructions: ED Folliculitis Prescriptions: cephALEXin [Keflex] 500 mg PO Q6H #28 capsule Valacyclovir HCl [Valtrex] 1,000 mg PO TID #30 tablet Comments: As discussed, it is hard to tell if this is folliculitis or possibly shingles, I am treating for both but obtained samples to clarify so if worse come back and more information will be available. Also follow-up with your primary care physician.
== END 2020-08-20 16:38 | disposition home or self-care (01) ==
LOC: ED 16:05
DX: L73.9 Follicular disorder, unspecified (principal); F17.200 Nicotine dependence, unspecified, uncomplicated
CPT/HCPCS: 81599; 87070; 87205; 99283

== ENCOUNTER 2021-09-04 12:15 | Emergency (ER) | payer MEDICAID ==
[2021-09-04 12:29] VITALS: BP 139/89
[2021-09-04 12:59] LABS: BILIRUBIN,URINE NEGATIVE (NEGATIVE); CLARITY,URINE CLEAR (CLEAR); GLUCOSE, URINE (UA) NEGATIVE (NEGATIVE); KETONES,URINE (UA) NEGATIVE (NEGATIVE); LEUKOCYTE ESTERASE, URINE NEGATIVE (NEGATIVE); NITRITE,URINE NEGATIVE (NEGATIVE); OCCULT BLOOD,URINE NEGATIVE (NEGATIVE); PROTEIN,URINE NEGATIVE (NEGATIVE); UROBILINOGEN,URINE 0.2 (NORMAL) E.U./dL (NORMAL)
--- NOTE | 2021-09-04 13:02 | ED Physician Documentation ---
History of Present Illness - Stated complaint Stated Complaint: MALE - Chief complaint Chief Complaint: General - Additonal information Additional information: 46-year-old male presents emergency department for evaluation of dry skin on the shaft of his penis. He reports that he has discomfort when shaking his penis after urination. He states the dry skin began developing about a month ago however it was never associated with a cut, abrasion, blister or any nonhealing sore. He has no penile discharge, swelling or erythema. No history of similar in the past. Sexually active and uses condoms. No history of STI in the past. He is circumcised. Review of Systems Constitutional: reports: Reviewed and negative Nose: reports: Reviewed and negative Throat: reports: Reviewed and negative Cardiac: reports: Reviewed and negative Respiratory: reports: Reviewed and negative GI: reports: Reviewed and negative : reports: Other (penile dry skin) Skin: reports: Reviewed and negative Musculoskeletal: reports: Reviewed and negative PD PAST MEDICAL HISTORY - Past Medical History Past Medical History: Yes Cardiovascular: Atrial fibrillation Respiratory: None Neuro: None Endocrine/Autoimmune: None GI: None : None HEENT: None Psych: None Musculoskeletal: None Derm: None - Past Surgical History Past Surgical History: Yes General: Bowel surgery - Present Medications Home Medications: Ambulatory Orders Medication Instructions Recorded Confirmed No Known Home Medications 09/04/21 09/04/21 - Allergies Allergies/Adverse Reactions: Allergies Allergy/AdvReac Type Severity Reaction Status Date / Time No Known Drug Allergies Allergy Verified 09/04/21 12:25 - Social History Does the pt smoke?: Yes Smoking Status: Current every day smoker Does the pt drink ETOH?: Yes Does the pt have substance abuse?: No - Immunizations Immunizations are current?: Yes - POLST Patient has POLST: No PD ED PE EXPANDED - 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 Results - Vitals Vitals: Vital Signs - 24 hr 09/04/21 12:25 Temperature 36 C L Heart Rate 69 Respiratory 16 Rate Blood Pressure 139/89 H O2 Saturation 100 Oxygen O2 Source Room air - Labs Labs: Laboratory Tests 09/04/21 12:55 Urine Color YELLOW Urine Clarity CLEAR Urine pH 6.0 Ur Specific [place] 1.015 Urine Protein NEGATIVE Urine Glucose (UA) NEGATIVE Urine Ketones NEGATIVE Urine Occult Blood NEGATIVE Urine Nitrite NEGATIVE Urine Bilirubin NEGATIVE Urine Urobilinogen 0.2 (NORMAL) Ur Leukocyte Esterase NEGATIVE Ur Microscopic Review NOT INDICATED Urine Culture Comments NOT INDICATED PD MEDICAL DECISION MAKING - ED course Complexity details: reviewed results, considered differential, d/w patient ED course: 46-year-old male presents emergency department for evaluation of dry skin on the shaft of his penis. Symptoms began about 1 month ago. At no point has there ever been a shallow ulceration sore, blister or abrasion. There is no penile discharge or dysuria. Urinalysis is without findings of infection. Chlamydia and gonorrhea testing is pending though the history and exam does not suggest this type of infection. No sores or lesions suggestive of a primary chancre. After further questioning the patient reports that he began using a new masturbatory toy and does not always use lubrication with though he minimizes the frequency of its use. I suspect that he has mild dry skin and irritation from a lack of lubrication. I have advised him to use Aquaphor or Vaseline. More emergent return precautions were discussed otherwise close follow-up with primary care provider where more extensive STD testing can be completed. Departure - Departure Disposition: 01 Home, Self Care Clinical Impression: Penile pain, Dry skin Condition: Stable Record reviewed to determine appropriate education?: Yes Comments: You were seen in the emergency department today for discomfort and dry skin on the shaft of your penis. Your urine does not show any signs of an infection. We are screening you for chlamydia and gonorrhea. As we discussed more extensive STD testing for diseases such as syphilis/HIV and herpes is best done through your primary care provider or [facility]. I suspect that this dry skin may be related to the way you masturbate. If you are using the toys please ensure that you use a lot of lubrication. In the short-term I would like you to apply a thin amount of Aquaphor or Vaseline to the dry skin. I suspect that this will help with the irritation. If any point you develop sores, have penile redness, milky drainage fevers or swelling then please return immediately to the ER for second evaluation.
[2021-09-04 18:59] LABS: CHLAMYDIA TRACHOMATIS DNA NEGATIVE (NEGATIVE); NEISSERIA GONORRHOEAE DNA NEGATIVE (NEGATIVE)
== END 2021-09-04 13:48 | disposition home or self-care (01) ==
LOC: ED 12:15
DX: L85.3 Xerosis cutis (principal); N48.89 Other specified disorders of penis; F17.200 Nicotine dependence, unspecified, uncomplicated
CPT/HCPCS: 81001; 81003; 87086; 87491; 87591; 87661; 99281; 99283

== ENCOUNTER 2022-05-19 15:25 | Emergency (ER) | payer MEDICAID ==
[2022-05-19 15:51] VITALS: BP 153/91
--- NOTE | 2022-05-19 17:42 | ED Physician Documentation ---
History of Present Illness - Stated complaint Stated Complaint: HEAD/TOOTH PX RT SIDE - Chief complaint Chief Complaint: Heent - Additonal information Additional information: 47-year-old male presents emergency department for evaluation of 3 to 4 days right-sided facial pain with intermittent swelling. He reports that he has pain in his right upper jaw that will radiate into the congregation area. He has had some swelling especially when he wakes up in the morning of the right cheek. He denies any fevers. He has not seen a dentist in quite some time. There is no trismus. Denies any tobacco use or vaping. Review of Systems Constitutional: reports: Other (Right-sided facial pain and swelling). denies: Fever, Chills Eyes: reports: Reviewed and negative Ears: denies: Loss of hearing, Ear pain Nose: denies: Congestion Throat: reports: Dental pain / toothache. denies: Oral lesions / sores, Sore throat Cardiac: reports: Reviewed and negative Respiratory: reports: Reviewed and negative GI: reports: Reviewed and negative : reports: Reviewed and negative PD PAST MEDICAL HISTORY - Past Medical History Cardiovascular: Atrial fibrillation Respiratory: None Neuro: None Endocrine/Autoimmune: None GI: None : None HEENT: None Psych: None Musculoskeletal: None Derm: None - Past Surgical History Past Surgical History: Yes General: Bowel surgery - Present Medications Home Medications: Ambulatory Orders Medication Instructions Recorded Confirmed Amox/Clav 875/125 [Augmentin] 1 each PO Q12H #14 tablet 05/19/22 - Allergies Allergies/Adverse Reactions: Allergies Allergy/AdvReac Type Severity Reaction Status Date / Time No Known Drug Allergies Allergy Verified 05/19/22 15:51 - Social History Does the pt smoke?: Yes Smoking Status: Current every day smoker Does the pt drink ETOH?: Yes Does the pt have substance abuse?: No - Immunizations Immunizations are current?: Yes - POLST Patient has POLST: No PD ED PE NORMAL - General General: Alert and oriented X 3, No acute distress, Well developed/nourished - HEENT HEENT: Atraumatic, Ears normal, Moist mucous membranes, Pharynx benign. No: Dentition benign (Tooth #3 is missing and rotted at the gumline. Tooth #2 mildly tender to touch. No gumline swelling or erythema. Patient does have very mild right cheek swelling. No trismus. Normal swallow and phonation) - Neck Neck: Supple, no meningeal sign, No adenopathy - Cardiac Cardiac: RRR - Respiratory Respiratory: No respiratory distress, Clear bilaterally Results - Vitals Vitals: Vital Signs - 24 hr 05/19/22 15:48 Temperature 36.1 C L Heart Rate 68 Respiratory 16 Rate Blood Pressure 153/91 H O2 Saturation 100 Oxygen O2 Source Room air PD MEDICAL DECISION MAKING - ED course Complexity details: considered differential, d/w patient ED course: 47-year-old male presents emergency department for evaluation of 3 to 4 days right sided facial pain, swelling and right jaw pain. On exam tooth #2 is mildly tender but tooth #3 is rotted and missing at the gumline. There was no trismus. I do note very mild amount of facial swelling. I suspect that this gentleman may have a small subclinical dental abscess and he will be started on Augmentin. He is advised to establish with a dentist soon as possible. Deferred imaging given lack of fevers, trismus or other red flags but emergent return precautions were discussed thoroughly Departure - Departure Disposition: 01 Home, Self Care Clinical Impression: Right sided facial pain, Swelling of right side of face Condition: Stable Record reviewed to determine appropriate education?: Yes Prescriptions: Amox/Clav 875/125 [Augmentin] 1 each PO Q12H #14 tablet Comments: Sumit you are seen today in the emergency department because for the last several days you have pain in your right upper jaw with some facial swelling. On exam you do have dental caries and tooth #2 and you are missing tooth #3. It is likely that you have little to no tooth pain because the caries have severed the nerve roots. I would like you to fill the prescription for the Augmentin and begin taking twice daily for the next week. Please rinse your mouth with warm salt water 3 times a day. However in order to manage your symptoms in the long-term I would like you to follow-up closely with a dentist. 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 You can take 500 mg of Tylenol 3 times a day or alternate with 600 mg of ibuprofen for any discomfort that you have. Return to the ER if you develop fevers, have significant facial swelling, are unable to open your jaw fully or tolerate your oral secretions
== END 2022-05-19 17:51 | disposition home or self-care (01) ==
LOC: ED 15:25
DX: K08.89 Other specified disorders of teeth and supporting structures (principal); R60.0 Localized edema; K02.9 Dental caries, unspecified; F17.200 Nicotine dependence, unspecified, uncomplicated
CPT/HCPCS: 99282; 99284